=== PATIENT | female | born 1945 | race Caucasian/White ===

== ENCOUNTER 2016-12-20 09:17 | Outpatient (RCR) | payer BC | END 2017-01-01 13:06 | disposition home or self-care (01) | PROVIDERS: ATTEND Family Medicine | DX: M48.06 Spinal stenosis, lumbar region (principal) ==

== ENCOUNTER → 2017-10-22 | Outpatient (CLI) | payer BC ==
--- NOTE | 2017-10-22 17:31 | Diagnostic Imaging Report ---
EXAM: Bilateral screening mammogram 2D views with tomosynthesis The current study was also evaluated with a Computer Aided Detection (CAD) system. Indication: Screening. No current complaints stated on the questionnaire. COMPARISON: 11/01/2015 FINDINGS: A 6 mm focal asymmetry in the central aspect of the left breast is seen. It is seen on both views although it appears to project slightly more posterior on the left MLO view raising question of this being 2 different asymmetries. Tomographic evaluation is in favor of summation artifact of parenchyma. The right breast demonstrates no focal suspicious mass. IMPRESSION: Focal compression views and ultrasound evaluation for left breast asymmetries is recommended. BI-RADS 0. ACR BI-RADS Category 0: Incomplete. (Needs additional imaging evaluation). Result letter will be mailed to the patient. Note: At least 10% of breast cancer is not imaged by mammography. Dictated by: Dictated on workstation # [id number]
== END ==
LOC: RAD 10:52
PROVIDERS: ATTEND Family Medicine
DX: Z12.31 Encounter for screening mammogram for malignant neoplasm of breast (principal)
CPT/HCPCS: 77067

== ENCOUNTER → 2019-01-14 | Outpatient (CLI) | payer BC ==
--- NOTE | 2019-01-14 12:05 | Diagnostic Imaging Report ---
INDICATION: Routine screening. Comparison is made with prior mammogram from 10/22/2017 and 10/19/2016. 2-D and 3-D bilateral screening mammography was performed with a Computer Aided Detection (CAD) system. FINDINGS: Scattered fibroglandular densities are identified bilaterally. Nodular density noted just medial to the nipple line on CC view retroareolar region persists. This is not well seen on MLO view but may represent a density noted on tomographic image 24 MLO. Additional views are recommended. No suspicious calcifications are seen. Axillae are unremarkable. IMPRESSION: Left breast density. Additional views are recommended for further evaluation. ACR BI-RADS Category 0: Incomplete. (Needs additional imaging evaluation). Result letter will be mailed to the patient. Note: At least 10% of breast cancer is not imaged by mammography. Dictated by: Dictated on workstation # [id number]
== END ==
LOC: RAD 09:14
PROVIDERS: ATTEND Family Medicine
DX: Z12.31 Encounter for screening mammogram for malignant neoplasm of breast (principal); R92.8 Other abnormal and inconclusive findings on diagnostic imaging of breast
CPT/HCPCS: 77067